=== PATIENT | female | born 2000 | race African-American/Black ===

== ENCOUNTER 2019-05-12 18:39 | Emergency (ER) | payer OTHER ==
[~2019-05-12] VITALS: Ht 162.6 cm; Wt 45.0 kg
[~2019-05-12 18:39] MED LIST: ACET325T33 PO; CIPR500T4 PO; ONDA4TAB35 PO; ONDA4TAB8 PO
[2019-05-12 18:41] VITALS: Ht 162.6 cm; Wt 45.0 kg
[2019-05-12] MEDS ORDERED: SODIUM CHLORIDE 0.9% 1L BAG IV* STA (19:00)
[2019-05-12] MEDS ORDERED: ACETAMINOPHEN 325 MG TAB PO STA (19:00)
[2019-05-12] MEDS ORDERED: CEFTRIAXONE 1 GM/50 ML (PMX) 50 ML IVPB ONE (20:30)
[2019-05-12 22:06] VITALS: BP 103/59; PULSE 94; RESP 22
== END 2019-05-12 22:12 | disposition home or self-care (01) ==
LOC: E/R 18:39
DX: N10 Acute pyelonephritis (principal); F17.210 Nicotine dependence, cigarettes, uncomplicated; R10.9 Unspecified abdominal pain
CPT/HCPCS: 36415; 71045; 80053; 81001; 81025; 83605; 85025; 87040; 87086; 96374; J0696; J7030; Z7502; Z7610